=== PATIENT | male | born 1945 | race Hispanic/Latino ===

== ENCOUNTER 2018-06-22 11:38 | Outpatient (CLI) | payer BC ==
--- NOTE | 2018-06-22 14:08 | Cat Scan Report ---
PROCEDURE: CT ANGIO CHEST TECHNIQUE: TECHNIQUE: Computerized tomographic angiography of the chest was performed after the IV i njection of iodinated nonionic contrast including image processing. The image data was postprocessed using 2-dimensional multiplanar reformatted (MPR) and 3-dimensional (MIP and/or volume rendered) yoanna hniques. Automated exposure control, adjustment of mA and/or kV according to patient size, or iterati ve reconstruction dose optimization techniques were utilized. Coronal and sagittal reconstructed imag ing provided. CT DOSE LENGTH PRODUCT: 591 mGy-cm. HISTORY: HYPERLIPIDEMIA COMPARISONS: None currently available. FINDINGS: Minimal right apical pleural calcification and thickening with minimal scarring. Mild emphysema. Righ t lower lung pleural plaque and irregular pleural thickening with a thickness 2.6 cm on series 2:92. Adjacent scarring identified. No pneumothorax. No obvious effusion. Left lung is clear. No endobronch ial lesions. Main pulmonary artery is unremarkable. No pulmonary embolism. No aneurysm. No dissection. Major branch arteries are within normal limits. [id number] atherosc lerotic disease. Moderate to marked cardiomegaly. No pericardial effusion. Pericardial calcifications. Coronary artery disease. There is no axillary adenopathy. There is no hilar or mediastinal mass or adenopathy. Limited images of the thyroid gland are unremarkable. Limited images of the esophagus are unremarkable. Bones: No suspicious osseous lesions on this limited examination of the skeleton. Metastatic disease better evaluated with bone scan. Degenerative changes are present in the spine. IMPRESSION: * No pulmonary embolus. No aortic aneurysm. No dissection. * Cardiomegaly. * Right lower lung pleural thickening and pleural plaques. Follow-up imaging to document stability i s recommended. This document is electronically signed by Yosi Sagastume MD., June 22 2018 02:05:57 PM ET
== END 2018-06-22 11:39 | disposition home or self-care (01) ==
LOC: CT 11:38
PROVIDERS: ATTEND Internal Medicine Cardiovascular Disease
DX: I51.7 Cardiomegaly (principal); E78.5 Hyperlipidemia, unspecified
CPT/HCPCS: 36415; 71275; 82565; 84520; Q9967